=== PATIENT | female | born 1945 | race Caucasian/White ===

== ENCOUNTER → 2018-04-20 | Outpatient (CLI) | payer OTHER ==
[~2018-04-20] VITALS: Ht 162.6 cm; Wt 80.9 kg
[~2018-04-20] MED LIST: ASPIRIN EC81 M1 PO; ATIVAN0.5 MG PO; CYMBALTA30 MG PO; DIOVAN HCT 1601 EACH PO; GLUCOPHAGE XR500 MG PO; LORTAB 7.5/5001 TA3 PO; LOSARTAN-HCTZ1 EACH PO; MOBIC7.5 MG PO; MULTIVITAMINS1 EAC7 PO; NAPROXEN SODIU220 M2 PO; PREMARIN0.3 MG PO; PROMETRIUM100 MG PO; PROVERA2.5 MG PO; SYMBYAX 3-25 M1 EACH PO; SYNTHROID100 MC1 PO; T3 PO; TOPAMAX100 MG PO
--- NOTE | ~2018-04-20 | HPC ---
[facility] [place] [address] PAIN MANAGEMENT CONSULTATION Name: TIP RIZVI Sheron Room #: [id number] Admission: 04/20/18 Attend Phys: Veronica Means Discharge: Date of : 41 Report #: [id number] THIS REPORT FOR: //name// CC: Veronica Chirinos CHIEF COMPLAINT: Pain in her metacarpal-carpal interaction of the left thumb. HISTORY OF PRESENT ILLNESS: The patient is here for a refill of her medication today in followup for her injection from her left thumb. The patient tells me that she had 95% improvement after about 2 weeks of her injection. She tells me the first couple of days was wonderful, then felt like it did not work at all and then the injection started working and it has been better ever since, and that injection was done almost 2 months ago and still doing better. The patient does rate her pain from 0-9 today, 0 in her left thumb, but 9 in her right breast. She tells me that she was at a [employer] on Friday night and fell. She landed with both her hands. She has bruising and ecchymosis on her thumbs bilateral knees and bruising on her right breast. She tells me that her right breast is the most painful, up to 9/10 today. Anything touching it hurts and she has sharp pain there today. The patient did not go to the hospital to check it out. Today she is here for a refill of her meloxicam, which was very helpful with her left thumb pain and also she tells me that it has helped her sacroiliac left hip pain. ALLERGIES: TALWIN, CODEINE, and ADHESIVE TAPE. CURRENT LIST OF MEDICATIONS: Meloxicam 7.5 twice a day, losartan/hydrochlorothiazide 50/12.5 once a day, Cymbalta 90 mg once a day, multivitamin, Synthroid 100 mcg per day, Topamax 100 mg twice a day and metformin 500 mg twice a day. PQRS: 1. She has a history of osteoarthritis in her hands. Denies rheumatoid arthritis. 2. Height is 5 feet 4 inches, weight 178, BMI is 30.4. 3. Vital signs: Blood pressure 166/90, pulse is 116, respirations 16, oxygen sat is 95%. 4. Pain score from 0-9. 5. Denies dizziness. Does not need help walking or standing and has fallen in the last 3 months. 6. No blood thinners and does have a history of high blood pressure. 7. No opioid therapy, therefore no opioid contract has been signed. 8. Her risk assessment is low. Her functional assessment is 0/70. 9. Recreational drug use is negative. She does not smoke and she does not drink any alcohol. [address] [address] PAIN MANAGEMENT CONSULTATION Name: TIP RIZVI Room #: REG Patrick Renee#: [id number] Admission: 04/20/18 Attend Phys: Veronica Means Discharge: Date of : 41 Report #: [id number] We checked her [place] drug monitoring system. The patient does not take any narcotics, though she does take some lorazepam on a daily basis that was not listed in her medication list and she fills that from only one physician. PHYSICAL EXAMINATION GENERAL: The patient is alert, orientated, pleasant female of 72, which she appears her stated age. HEENT: Normocephalic, atraumatic. Extraocular eye muscles are intact. Mucous membranes are moist. Hearing is intact. CHEST: The patient shows me a significant ecchymosis on her right breast, on the underside of her breast. It does not appear to be on the chest wall, just localized to the breast, very tender to touch. MUSCULOSKELETAL: Examination of the left hand reveals normal range of motion. Also, ecchymosis noted on her right thumb to her wrist and left thumb to her wrist. Only tenderness is on the bruising area. The patient also has ecchymosis on her bilateral knees, the patient states the pants are covering, so unable to see this. IMPRESSION: Osteoarthritis, diffuse with significant involvement of her left metacarpal-carpal joint. PLAN: 1. The patient is here for refill of her meloxicam. Script was given today for 7.5 mg one p.o. b.i.d., quantity 60 with 2 additional refills. The patient told to not take any ibuprofen or Aleve products, but the patient is able to take Tylenol. 2. The patient was happy to hear that she can take Tylenol because her right breast is very painful due to recent fall. 3. The patient will follow up as needed for injections in her thumb if it is warranted in the future. I instructed the patient that she could get her meloxicam filled from her primary care doctor if she wishes to. Thee months of medicines were given and the patient also instructed to decrease to once a day if she was able to tolerate that with good pain control. The patient seen in collaboration with Dr. Maco Domínguez. <ELECTRONICALLY SIGNED> By: Veronica Means 04/21/18 0717 [id number] Veronica espinosa
[2018-04-20 13:15] VITALS: BP 166/90
== END ==
LOC: PAIN 06:50
DX: M19.042 Primary osteoarthritis, left hand (principal); Z79.899 Other long term (current) drug therapy

== ENCOUNTER → 2018-09-21 | Outpatient (CLI) | payer OTHER | LOC: RAD 14:02 | DX: M25.561 Pain in right knee (principal); M25.562 Pain in left knee; Z88.5 Allergy status to narcotic agent; Z88.8 Allergy status to other drugs, medicaments and biological substances ==

== ENCOUNTER → 2020-10-12 | Outpatient (CLI) | payer OTHER ==
[~2020-10-12] VITALS: Ht 162.6 cm; Wt 77.3 kg
[~2020-10-12] MED LIST changes: +LANTUS SUBQ; +LIPITOR 20 MG T20 M1 PO; +NEURONTIN 300M300 M2 PO; +NOVOLOG MI100 UNIT/2 SUBQ; +PRILOSEC OTC20 MG PO; +WELLBUTRIN 100100 MG PO
[2020-10-12 12:32] VITALS: BP 146/79
--- NOTE | 2020-10-12 12:45 | NUR ---
Pain Clinic Assessment: 1. History of Osteoarthritis: hands ALL OVER History of Rheumatoid Arthritis: Not Applicable 2. Height: 5 ft. 4 in. 162.6 cm. Weight: 170.4 lb. oz. 77.293 kg. Patient's BMI: 29.2 3. Vital Signs: BP: 146/79 Pulse: 94 Resp: 20 Temp: 02 Sat: 97 ECG Mon: 4. Pain Intensity: DEPENDS 5. Fall Risk: Dizziness: N Needs help standing or walking: N Fallen in the last 3 months: Y Fall risk comments: 6. Patient on Blood Thinner: None 7. History of Hypertension: Y 8. Opioid Therapy greater than 6 weeks: N Opiate Contract Signed: 9. Risk Assessment Tool Provided: LOW 10. Functional Assessment Tool: UNABLE TO RATE 11. Recreational Drug Use: Never Drug Type: Tobacco Use: Never Smoker Tobacco Type: Amount or Packs/day: How Many Years: Alcohol Use: No Frequency: Quant:
== END ==
LOC: PAIN 07:52
PROVIDERS: ATTEND Anesthesiology Pain Medicine
DX: M19.041 Primary osteoarthritis, right hand (principal); M19.042 Primary osteoarthritis, left hand

== ENCOUNTER → 2021-03-06 | Outpatient (CLI) | payer OTHER | LOC: RAD 11:06 | PROVIDERS: ATTEND Nurse Practitioner | DX: M17.11 Unilateral primary osteoarthritis, right knee (principal); M25.861 Other specified joint disorders, right knee; M25.561 Pain in right knee; M25.521 Pain in right elbow; G89.29 Other chronic pain ==

== ENCOUNTER → 2021-04-12 | Outpatient (CLI) | payer OTHER ==
[~2021-04-12] VITALS: Ht 162.6 cm; Wt 78.2 kg
[~2021-04-12] MED LIST changes: +ENDOCET 10-3251 EACH PO; +IBUPROFEN 200200 M1 PO; +LIDODERM1 EACH TOP; +PAIN RELIEF EX500 MG PO; +PERCOCET 5-3251 EACH PO
[2021-04-12 14:24] VITALS: BP 167/107
--- NOTE | 2021-04-12 14:49 | NUR ---
Pain Clinic Assessment: 1. History of Osteoarthritis: hands ALL OVER History of Rheumatoid Arthritis: Not Applicable 2. Height: 5 ft. 4 in. 162.6 cm. Weight: 172.4 lb. oz. 78.200 kg. Patient's BMI: 29.6 3. Vital Signs: BP: 167/107 Pulse: 95 Resp: 22 Temp: 02 Sat: 100 ECG Mon: 4. Pain Intensity: 9 TO 10 5. Fall Risk: Dizziness: N Needs help standing or walking: N Fallen in the last 3 months: N Fall risk comments: 6. Patient on Blood Thinner: None 7. History of Hypertension: Y 8. Opioid Therapy greater than 6 weeks: N Opiate Contract Signed: 9. Risk Assessment Tool Provided: LOW 10. Functional Assessment Tool: UNABLE TO RATE 11. Recreational Drug Use: Never Drug Type: Tobacco Use: Never Smoker Tobacco Type: Amount or Packs/day: How Many Years: Alcohol Use: No Frequency: Quant:
== END | disposition home or self-care (01) ==
LOC: PAIN 12:11
PROVIDERS: ATTEND Anesthesiology Pain Medicine
DX: B02.29 Other postherpetic nervous system involvement (principal); G89.29 Other chronic pain; I10 Essential (primary) hypertension; Z98.890 Other specified postprocedural states; Z79.899 Other long term (current) drug therapy; Z88.6 Allergy status to analgesic agent; Z88.8 Allergy status to other drugs, medicaments and biological substances

== ENCOUNTER → 2021-04-23 | Outpatient (CLI) | payer OTHER ==
[~2021-04-23] MED LIST changes: +LYRICA 75 MG CA75 MG PO; +NORTRIPTYLINE H25 M3 PO
== END ==
LOC: TELEPC 12:38 → PAIN 12:38
PROVIDERS: ATTEND Clinical Nurse Specialist Adult Health
DX: B02.29 Other postherpetic nervous system involvement (principal); Z88.8 Allergy status to other drugs, medicaments and biological substances; Z79.4 Long term (current) use of insulin; Z79.84 Long term (current) use of oral hypoglycemic drugs

== ENCOUNTER → 2021-05-07 | Outpatient (CLI) | payer OTHER ==
[~2021-05-07] VITALS: Ht 162.6 cm; Wt 75.9 kg
[2021-05-07 12:42] VITALS: BP 152/97
--- NOTE | 2021-05-07 12:51 | NUR ---
Pain Clinic Assessment: 1. History of Osteoarthritis: hands ALL OVER History of Rheumatoid Arthritis: Not Applicable 2. Height: 5 ft. 4 in. 162.6 cm. Weight: 167.4 lb. oz. 75.932 kg. Patient's BMI: 28.7 3. Vital Signs: BP: 152/97 Pulse: 105 Resp: 18 Temp: 02 Sat: 100 ECG Mon: 4. Pain Intensity: 8 5. Fall Risk: Dizziness: N Needs help standing or walking: N Fallen in the last 3 months: Y Fall risk comments: 6. Patient on Blood Thinner: None 7. History of Hypertension: Y 8. Opioid Therapy greater than 6 weeks: N Opiate Contract Signed: 9. Risk Assessment Tool Provided: LOW 10. Functional Assessment Tool: UNABLE TO RATE 11. Recreational Drug Use: Never Drug Type: Tobacco Use: Never Smoker Tobacco Type: Amount or Packs/day: How Many Years: Alcohol Use: No Frequency: Quant:
== END | disposition home or self-care (01) ==
LOC: PAIN 09:52
PROVIDERS: ATTEND Anesthesiology Pain Medicine
DX: B02.29 Other postherpetic nervous system involvement (principal); I10 Essential (primary) hypertension; Z98.890 Other specified postprocedural states; Z79.899 Other long term (current) drug therapy; Z88.8 Allergy status to other drugs, medicaments and biological substances

== ENCOUNTER → 2021-06-11 | Outpatient (CLI) | payer OTHER ==
[~2021-06-11] VITALS: Ht 162.6 cm; Wt 76.9 kg
[2021-06-11 14:14] VITALS: BP 125/72
--- NOTE | 2021-06-11 14:25 | NUR ---
Pain Clinic Assessment: 1. History of Osteoarthritis: hands ALL OVER History of Rheumatoid Arthritis: Not Applicable 2. Height: 5 ft. 4 in. 162.6 cm. Weight: 169.6 lb. oz. 76.930 kg. Patient's BMI: 29.1 3. Vital Signs: BP: 125/72 Pulse: 105 Resp: 14 Temp: 02 Sat: 100 ECG Mon: 4. Pain Intensity: 8 5. Fall Risk: Dizziness: N Needs help standing or walking: N Fallen in the last 3 months: N Fall risk comments: 6. Patient on Blood Thinner: None 7. History of Hypertension: Y 8. Opioid Therapy greater than 6 weeks: N Opiate Contract Signed: 9. Risk Assessment Tool Provided: LOW 10. Functional Assessment Tool: UNABLE TO RATE 11. Recreational Drug Use: Never Drug Type: Tobacco Use: Never Smoker Tobacco Type: Amount or Packs/day: How Many Years: Alcohol Use: No Frequency: Quant:
== END ==
LOC: PAIN 07:48
PROVIDERS: ATTEND Anesthesiology Pain Medicine
DX: B02.29 Other postherpetic nervous system involvement (principal); Z88.8 Allergy status to other drugs, medicaments and biological substances; Z79.84 Long term (current) use of oral hypoglycemic drugs; Z79.4 Long term (current) use of insulin; Z79.899 Other long term (current) drug therapy

== ENCOUNTER → 2021-07-16 | Outpatient (CLI) | payer OTHER ==
[~2021-07-16] VITALS: Ht 170.2 cm; Wt 75.3 kg
[~2021-07-16] MED LIST changes: +LYRICA 50 MG50 MG PO; +PREGABALIN25 MG PO
[2021-07-16 14:40] VITALS: BP 114/67
--- NOTE | 2021-07-16 14:52 | NUR ---
Pain Clinic Assessment: 1. History of Osteoarthritis: hands ALL OVER History of Rheumatoid Arthritis: Not Applicable 2. Height: 5 ft. 7 in. 170.2 cm. Weight: 166.0 lb. oz. 75.297 kg. Patient's BMI: 26.0 3. Vital Signs: BP: 114/67 Pulse: 101 Resp: 20 Temp: 02 Sat: 97 ECG Mon: 4. Pain Intensity: 2-8 5. Fall Risk: Dizziness: N Needs help standing or walking: N Fallen in the last 3 months: Y Fall risk comments: 6. Patient on Blood Thinner: None 7. History of Hypertension: Y 8. Opioid Therapy greater than 6 weeks: N Opiate Contract Signed: 9. Risk Assessment Tool Provided: LOW 10. Functional Assessment Tool: UNABLE TO RATE 11. Recreational Drug Use: Never Drug Type: Tobacco Use: Never Smoker Tobacco Type: Amount or Packs/day: How Many Years: Alcohol Use: No Frequency: Quant:
== END ==
LOC: PAIN 07-12 10:30
PROVIDERS: ATTEND Anesthesiology Pain Medicine
DX: B02.29 Other postherpetic nervous system involvement (principal); M54.2 Cervicalgia; M54.6 Pain in thoracic spine; Z88.8 Allergy status to other drugs, medicaments and biological substances; Z79.899 Other long term (current) drug therapy; Z79.4 Long term (current) use of insulin